=== PATIENT | female | born 1930 | race Caucasian/White ===

== ENCOUNTER 2017-06-18 09:33 | Observation (INO) | payer MEDICARE, OTHER ==
[2017-06-18 09:33] VITALS: BMI 25.4
[2017-06-18 10:35] LABS: BASO # 0.02 K/mm3 (0.0-2.0); BASO % 0.3 % (0.0-3.0); EOS # 0.1 (0.0-0.7); EOS % 0.9 % (1.5-5.0); GRAN # 5.26 (1.4-6.5); GRAN % 70.1 % (50.0-68.0); HEMOGLOBIN 12.3 g/dL (12.0-16.0); LYMPH # 1.7 (1.2-3.4); LYMPH % 22.4 % (22.0-35.0); MEAN CELL VOLUME 96.1 fl (80.0-105.0); MEAN CORPUSCULAR HEMOGLOBIN 31.9 pg (25.0-35.0); MEAN CORPUSCULAR HGB CONC 33.2 g/dl (31.0-37.0); MEAN PLATELET VOLUME 10.3 fl (7.0-11.0); MONO # 0.5 (0.1-0.6); MONO % 6.3 % (1.0-6.0); RBC 3.85 10^6/uL (3.5-6.1); RED CELL DISTRIBUTION WIDTH 12.9 % (11.5-14.5); WHITE BLOOD COUNT 7.5 10^3/ul (4.5-11.0)
[2017-06-18 10:57] LABS: URINE BILIRUBIN NEGATIVE (NEGATIVE); URINE BLOOD SMALL (NEGATIVE); URINE GLUCOSE (UA) NEGATIVE (NEGATIVE); URINE LEUKOCYTE ESTERASE NEGATIVE Leu/uL (NEGATIVE); URINE NITRATE NEGATIVE (NEGATIVE); URINE PROTEIN NEGATIVE mg/dL (<30 mg/dL); URINE UROBILINOGEN 0.2 E.U./dL (<1 E.U./dL)
[2017-06-18 10:58] LABS: URINE APPEARANCE SL CLOUDY (CLEAR); URINE COLOR YELLOW (YELLOW)
--- NOTE | 2017-06-18 11:17 | RAD ---
HISTORY: weakness COMPARISON: 08/08/2016. FINDINGS: LUNGS: The lungs are well inflated. There is mild pulmonary venous congestion. No focal consolidation PLEURA: No significant pleural effusion identified, no pneumothorax apparent. CARDIOVASCULAR: There is mild cardiomegaly. Atherosclerotic aortic arch calcifications are present. OSSEOUS STRUCTURES: No significant abnormalities. VISUALIZED UPPER ABDOMEN: Normal. OTHER FINDINGS: None. IMPRESSION: Mild cardiomegaly and pulmonary venous congestion.
[2017-06-18 11:19] LABS: ALB/GLOB RATIO 1.2 (1.1-1.8); ALBUMIN 3.8 g/dL (3.0-4.8); ALT/SGPT 30 U/L (7-56); AST/SGOT 22 U/L (14-36); BLOOD UREA NITROGEN 28 mg/dL (7-21); CALCIUM 9.4 mg/dL (8.4-10.5); GFR AFRICAN-AMERICAN > 60; GFR NON-AFRICAN AMERICAN > 60; LIPASE 49 U/L (23-300)
[2017-06-18 11:23] LABS: URINE EPITHELIAL CELLS 0 - 2 /hpf (0-5); URINE RBC 0 - 2 /hpf (0-2); URINE WBC NEGATIVE /hpf (0-6)
[2017-06-18 11:31] LABS: B-TYPE NATRIURETIC PEPTIDE 1360 pg/mL (0-450); TROPONIN I < 0.01 ng/mL
--- NOTE | 2017-06-18 11:46 | ED PDOC ---
Arrival/HPI - General Chief Complaint: Weakness/Neurological Deficit Time Seen by Provider: 06/18/17 10:04 Historian: Patient, Family (Son), Caregiver EM Caveat: Dementia - History of Present Illness Narrative History of Present Illness (Text): 06/18/17 11:43 An 87 year old female, whose past medical history includes dementia, presents to the emergency department complaining of fatigue and generalized weakness. As per the caregiver, the patient was unable to stand up and walk today. The caregiver states that yesterday the patient was walking around and could usually walk up to 20 blocks. Today, however, the patient was unable to get up to use the bathroom. The patient's son states that the patient complained of dysuria a few days ago. The patient currently denies fevers, chills, headache, dizziness, chest pain, shortness of breath, dyspnea on exertion, cough, abdominal pain, nausea, vomiting, diarrhea, back pain, neck pain, or any other complaint. Time/Duration: Other (Today) Symptom Onset: Sudden Symptom Course: Unchanged Activities at Onset: Light Context: Home Past Medical History - Provider Review Nursing Documentation Reviewed: Yes - Infectious Disease Hx of Infectious Diseases: None - Tetanus Immunization Tetanus Immunization: Unknown - Reproductive Menopause: Yes - Cardiac Hx Cardiac Disorders: Yes Hx Hypotension: Yes - Pulmonary Hx Respiratory Disorders: No - Neurological Hx Neurological Disorder: Yes Hx Alzheimer's Disease: Yes Hx Dementia: Yes - HEENT Hx HEENT Disorder: No - Renal Hx Renal Disorder: No - Endocrine/Metabolic Hx Endocrine Disorders: No - Hematological/Oncological Hx Blood Disorders: No - Integumentary Hx Dermatological Disorder: No - Musculoskeletal/Rheumatological Hx Musculoskeletal Disorders: Yes Hx Arthritis: Yes - Gastrointestinal Hx Gastrointestinal Disorders: No - Genitourinary/Gynecological Hx Genitourinary Disorders: No - Psychiatric Hx Psychophysiologic Disorder: No Hx Substance Use: No - Past Surgical History Past Surgical History: No Previous - Surgical History Other/Comment: bladder surgery - Anesthesia Hx Anesthesia: No - Suicidal Assessment Feels Threatened In Home Enviroment: No Family/Social History - Physician Review Nursing Documentation Reviewed: Yes Family/Social History: No Known Family HX Smoking Status: Former Smoker Hx Alcohol Use: No Hx Substance Use: No Hx Substance Use Treatment: No Allergies/Home Meds Allergies/Adverse Reactions: Allergies No Known Allergies Allergy (Verified 06/18/17 09:57) Home Medications: Home Meds Medication Instructions Recorded Confirmed No Known Home Med 06/18/17 06/18/17 Review of Systems - Physician Review All systems were reviewed & negative as marked: Yes - Review of Systems Systems not reviewed;Unavailable: Dementia Constitutional: Fatigue (Fatigue and generalized weakness). absent: Fevers, Night Sweats Respiratory: absent: SOB, Cough Cardiovascular: absent: Chest Pain, RIDLEY Gastrointestinal: absent: Abdominal Pain, Nausea, Vomiting Musculoskeletal: absent: Back Pain, Neck Pain Neurological: absent: Headache, Dizziness Physical Exam Vital Signs Temp Pulse Resp BP Pulse Ox 06/18/17 10:30 61 18 100 06/18/17 10:02 97.7 F 17 180/79 H 99 Temperature: Afebrile Blood Pressure: Hypertensive Pulse: Regular Respiratory Rate: Normal Appearance: Positive for: Well-Appearing, Non-Toxic Pain Distress: None Mental Status: No: Alert and Oriented X 3 (Alert.) - Systems Exam Head: Present: Atraumatic, Normocephalic Pupils: Present: PERRL Extroacular Muscles: Present: EOMI Mouth: Present: Moist Mucous Membranes Respiratory/Chest: Present: Clear to Auscultation Cardiovascular: Present: Regular Rate and Rhythm, Normal S1, S2. No: Murmurs Abdomen: No: Tenderness, Distention Medical Decision Making ED Course and Treatment: 06/18/17 11:48 Impression: An 87 year old female presents to the emergency department complaining of fatigue and generalized weakness. Plan: -- Reassess and disposition Prior Visits: Notes and results from previous visits were reviewed. Patient was last seen in the emergency department on Progress Notes: - Lab Interpretations Lab Results: 06/18/17 10:15 06/18/17 10:57 Lab Results 06/18/17 10:57: Sodium 138, Potassium 4.6, Chloride 102, Carbon Dioxide 27, Anion Gap 13, BUN 28 H, Creatinine 0.7, Est GFR ( Amer) > 60, Est GFR ( Non-Af Amer) > 60, Random Glucose 106, Calcium 9.4, Total Bilirubin 0.7, AST 22 , ALT 30, Alkaline Phosphatase 80, Lactate Dehydrogenase 475, Total Creatine Kinase 36, Troponin I < 0.01, NT-Pro-B Natriuret Pep 1360 H, Total Protein 7.1, Albumin 3.8, Globulin 3.2, Albumin/Globulin Ratio 1.2, Lipase 49 06/18/17 10:35: Urine Color Yellow, Urine Appearance Sl cloudy, Urine pH 7.0, Ur Specific [place] 1.015, Urine Protein Negative, Urine Glucose (UA) Negative, Urine Ketones Negative, Urine Blood Small H, Urine Nitrate Negative, Urine Bilirubin Negative, Urine Urobilinogen 0.2, Ur Leukocyte Esterase Negative, Urine RBC 0 - 2, Urine WBC Negative, Ur Epithelial Cells 0 - 2 06/18/17 10:15: WBC 7.5, RBC 3.85, Hgb 12.3, Hct 37.0, MCV 96.1, MCH 31.9, MCHC 33.2, RDW 12.9, Plt Count 187, MPV 10.3, Gran % 70.1 H, Lymph % (Auto) 22.4, B[place]soe % (Auto) 6.3 H, Eos % (Auto) 0.9 L, Baso % (Auto) 0.3, Gran # 5.26, Lymph # 1.7, Bledsoe # 0.5, Eos # 0.1, Baso # 0.02 - RAD Interpretation Radiology Orders: 06/18/17 10:04 CHEST PORTABLE [RAD] Stat Disposition/Present on Arrival - Present on Arrival History of DVT/PE: No History of Uncontrolled Diabetes: No Urinary Catheter: No History of Decub. Ulcer: No History Surgical Site Infection Following: None - Disposition
--- NOTE | 2017-06-18 11:54 | ED PDOC ---
Arrival/HPI - General Chief Complaint: Weakness/Neurological Deficit Time Seen by Provider: 06/18/17 10:04 Historian: Family, Caregiver (Son) EM Caveat: Dementia - History of Present Illness Narrative History of Present Illness (Text): 06/18/17 11:43 An 87 year old female, whose past medical history includes dementia, presents to the emergency department complaining of fatigue and generalized weakness. As per the caregiver, the patient was unable to stand up and walk today. The caregiver states that yesterday the patient was walking around and could usually walk up to 20 blocks. Today, however, the patient was unable to get up off the toilet today. The patient's son in-law states that the patient complained of dysuria and urinary frequency. The patient currently denies fevers , chills, headache, dizziness, chest pain, shortness of breath, dyspnea on exertion, cough, abdominal pain, nausea, vomiting, diarrhea, back pain, neck pain, or any other complaint. Time/Duration: Other (Today) Symptom Onset: Sudden Symptom Course: Unchanged Activities at Onset: Rest, Light Context: Home Past Medical History - Provider Review Nursing Documentation Reviewed: Yes - Travel History Have you recently traveled outside [place] w/in the past 3 mons?: No - Infectious Disease Hx of Infectious Diseases: None - Tetanus Immunization Tetanus Immunization: Unknown - Reproductive Menopause: Yes - Cardiac Hx Cardiac Disorders: Yes Hx Hypotension: Yes - Pulmonary Hx Respiratory Disorders: No - Neurological Hx Neurological Disorder: Yes Hx Alzheimer's Disease: Yes Hx Dementia: Yes - HEENT Hx HEENT Disorder: No - Renal Hx Renal Disorder: No - Endocrine/Metabolic Hx Endocrine Disorders: No - Hematological/Oncological Hx Blood Disorders: No - Integumentary Hx Dermatological Disorder: No - Musculoskeletal/Rheumatological Hx Musculoskeletal Disorders: Yes Hx Arthritis: Yes - Gastrointestinal Hx Gastrointestinal Disorders: No - Genitourinary/Gynecological Hx Genitourinary Disorders: No - Psychiatric Hx Psychophysiologic Disorder: No Hx Substance Use: No - Past Surgical History Past Surgical History: No Previous - Surgical History Other/Comment: bladder surgery - Anesthesia Hx Anesthesia: No - Suicidal Assessment Feels Threatened In Home Enviroment: No Family/Social History - Physician Review Nursing Documentation Reviewed: Yes Family/Social History: No Known Family HX Smoking Status: Former Smoker Hx Alcohol Use: No Hx Substance Use: No Hx Substance Use Treatment: No Allergies/Home Meds Allergies/Adverse Reactions: Allergies No Known Allergies Allergy (Verified 06/18/17 09:57) Home Medications: Home Meds Medication Instructions Recorded Confirmed No Known Home Med 06/18/17 06/18/17 Review of Systems - Physician Review All systems were reviewed & negative as marked: Yes - Review of Systems Systems not reviewed;Unavailable: Dementia Constitutional: Fatigue (Fatigue and generalized weakness). absent: Fevers, Night Sweats Respiratory: absent: SOB, Cough Cardiovascular: absent: Chest Pain, RIDLEY Gastrointestinal: absent: Abdominal Pain, Diarrhea, Nausea, Vomiting Genitourinary Female: Dysuria Musculoskeletal: absent: Back Pain, Neck Pain Neurological: absent: Headache, Dizziness Physical Exam Vital Signs Reviewed: Yes Vital Signs Temp Pulse Resp BP Pulse Ox 06/18/17 17:04 62 18 168/69 H 98 06/18/17 11:55 63 18 171/71 H 100 06/18/17 10:30 61 18 100 06/18/17 10:02 97.7 F 17 180/79 H 99 Temperature: Afebrile Blood Pressure: Hypertensive Pulse: Regular Respiratory Rate: Normal Appearance: Positive for: Well-Appearing, Non-Toxic Pain Distress: None Mental Status: Positive for: other (alert) - Systems Exam Head: Present: Atraumatic, Normocephalic Pupils: Present: PERRL Extroacular Muscles: Present: EOMI Mouth: Present: Moist Mucous Membranes Respiratory/Chest: Present: Clear to Auscultation, Good Air Exchange. No: Respiratory Distress, Accessory Muscle Use Cardiovascular: Present: Regular Rate and Rhythm, Normal S1, S2. No: Murmurs Abdomen: No: Tenderness, Distention Back: Present: Normal Inspection Upper Extremity: Present: Normal ROM Lower Extremity: Present: Normal Inspection. No: Edema Neurological: Present: GCS=15, Speech Normal Skin: Present: Warm, Dry, Normal Color. No: Rashes Psychiatric: Present: Alert Medical Decision Making ED Course and Treatment: 06/18/17 11:53 Impression: An 87 year old female presents to the emergency department complaining of fatigue and generalized weakness. Plan: -- EKG -- labs; BNP; 1320, bun; 28/ cr0.7 trop; 0.01 -- urine; + blood -- Reassess and disposition Prior Visits: Notes and results from previous visits were reviewed. Patient was last seen in the emergency department on 08/08/2016. the patient was seen in the emergency department for a complaint of LOC with trauma. The patient was hospitalized. Progress Notes: EKG: Ordered, reviewed, and independently interpreted the EKG. Rate : 63 BPM Rhythm : NSR Interpretation : No ST-elevations. Normal Intervals. CHEST X-RAY Dictator : Michaela Liu MD Report Date : 06/18/2017 11:15:46 IMPRESSION: Mild cardiomegaly and pulmonary venous congestion. vitals remain stable; pt eating in er; no complaints. case discussed with dr. mederos; due to patients hx of dementia; history is unreliable; pt with episode of weakness, elevated bnp; will admit observational status to tele for serial enzymes and scientific informatics leader and neurology consult. all aspects of this case were discussed the attending of record. impression; weakness, elevated bnp admit observational status to tele. - Lab Interpretations Lab Results: 06/18/17 10:15 06/18/17 10:57 Lab Results 06/18/17 10:57: Sodium 138, Potassium 4.6, Chloride 102, Carbon Dioxide 27, Anion Gap 13, BUN 28 H, Creatinine 0.7, Est GFR ( Amer) > 60, Est GFR ( Non-Af Amer) > 60, Random Glucose 106, Calcium 9.4, Total Bilirubin 0.7, AST 22 , ALT 30, Alkaline Phosphatase 80, Lactate Dehydrogenase 475, Total Creatine Kinase 36, Troponin I < 0.01, NT-Pro-B Natriuret Pep 1360 H, Total Protein 7.1, Albumin 3.8, Globulin 3.2, Albumin/Globulin Ratio 1.2, Lipase 49 06/18/17 10:35: Urine Color Yellow, Urine Appearance Sl cloudy, Urine pH 7.0, Ur Specific [place] 1.015, Urine Protein Negative, Urine Glucose (UA) Negative, Urine Ketones Negative, Urine Blood Small H, Urine Nitrate Negative, Urine Bilirubin Negative, Urine Urobilinogen 0.2, Ur Leukocyte Esterase Negative, Urine RBC 0 - 2, Urine WBC Negative, Ur Epithelial Cells 0 - 2 06/18/17 10:15: WBC 7.5, RBC 3.85, Hgb 12.3, Hct 37.0, MCV 96.1, MCH 31.9, MCHC 33.2, RDW 12.9, Plt Count 187, MPV 10.3, Gran % 70.1 H, Lymph % (Auto) 22.4, [place] % (Auto) 6.3 H, Eos % (Auto) 0.9 L, Baso % (Auto) 0.3, Gran # 5.26, Lymph # 1.7, [place] # 0.5, Eos # 0.1, Baso # 0.02 I have reviewed the lab results: Yes - RAD Interpretation Radiology Orders: 06/18/17 10:04 CHEST PORTABLE [RAD] Stat 06/18/17 12:30 HEAD W/O CONTRAST [CT] Stat - EKG Interpretation Interpreted by ED Physician: Yes Type: 12 lead EKG - Scribe Statement The provider has reviewed the documentation as recorded by the Scribe Annette Mcbride Provider Karenibe Attestation: All medical record entries made by the Scribe were at my direction and personally dictated by me. I have reviewed the chart and agree that the record accurately reflects my personal performance of the history, physical exam, medical decision making, and the department course for this patient. I have also personally directed, reviewed, and agree with the discharge instructions and disposition. Disposition/Present on Arrival - Present on Arrival Any Indicators Present on Arrival: No History of DVT/PE: No History of Uncontrolled Diabetes: No Urinary Catheter: No History of Decub. Ulcer: No History Surgical Site Infection Following: None - Disposition Have Diagnosis and Disposition been Completed?: Yes Diagnosis: Weakness, Elevated brain natriuretic peptide (BNP) level Disposition: HOSPITALIZED Disposition Time: 15:10 Patient Plan: Observation Patient Problems: Current Active Problems Problem Status Onset Elevated brain natriuretic peptide (BNP) level Acute Weakness Acute Condition: FAIR
--- NOTE | 2017-06-18 13:17 | CT ---
PROCEDURE: CT HEAD WITHOUT CONTRAST. HISTORY: weakness COMPARISON: None available. TECHNIQUE: Axial computed tomography images were obtained through the head/brain without intravenous contrast. Radiation dose: Total exam DLP = 800 mGy-cm. This CT exam was performed using one or more of the following dose reduction techniques: Automated exposure control, adjustment of the mA and/or kV according to patient size, and/or use of iterative reconstruction technique. FINDINGS: HEMORRHAGE: No intracranial hemorrhage. BRAIN: No mass effect or edema. No atrophy or chronic microvascular ischemic changes. VENTRICLES: Unremarkable. No hydrocephalus. CALVARIUM: Unremarkable. PARANASAL SINUSES: Unremarkable as visualized. No significant inflammatory changes. MASTOID AIR CELLS: Unremarkable as visualized. No inflammatory changes. OTHER FINDINGS: None. IMPRESSION: No acute findings
--- NOTE | 2017-06-18 17:48 | CARD ---
APPROVED REPORT EKG Measurement Heart [id number] <Conclusion> Normal sinus rhythm Septal infarct, age undetermined Abnormal ECG
[2017-06-19 03:27] VITALS: BP 134/64; RESP 20; TEMP 97.9; O2SAT 95
[2017-06-19 12:25] VITALS: PULSE 55
--- NOTE | 2017-06-19 13:57 | CON ---
DATE: 06/19/2017 INDICATIONS: Weakness. HISTORY OF PRESENT ILLNESS: This is an 87-year-old woman, known to me, who was brought to the Emergency Room by her son because of weakness. For the last day or so, she has been unable to ambulate, which is unusual. She has dementia and a chronic caregiver who noticed recent changes including the inability to walk. There was no chest pain, shortness of breath, orthopnea, PND, syncope, presyncope, lightheadedness, dizziness, vertigo, palpitations, edema, claudication, fever, chills, coughs, sputum production, hemoptysis, abdominal pain, nausea, vomiting, diarrhea, constipation, or melena. PAST MEDICAL HISTORY: Notable for dementia, hypertension, intermittent left bundle-branch block, degenerative joint disease, cerebrovascular disease, she has had several falls over the years, and she has had a negative EP evaluation. In 08/2016, she underwent an echocardiogram, which revealed normal LV function, severe pulmonary hypertension, severe tricuspid regurgitation, and right ventricular enlargement. There is no history of diabetes, stroke, TIA, gout, myocardial infraction, angina, or congestive heart failure. MEDICATIONS: She was on no medications at the time of admission. There were no medication allergies reported. FAMILY HISTORY: Not available. Her son has cardiac disease. SOCIAL HISTORY: She lives at home with a caregiver. She is a former smoker. She does not drink alcohol. REVIEW OF SYSTEMS: A 10-point review of systems is limited because of dementia. PHYSICAL EXAMINATION: GENERAL: She is a well-developed elderly woman lying in bed on telemetry in no acute distress. VITAL SIGNS: Notable for sinus rhythm, sinus bradycardia 54 to 63 beats per minute, she is afebrile. Blood pressure is 134/64, respirations are 18 to 20, and O2 saturation is 95% to 100% on room air. HEENT: Reveals no neck vein distention, thyromegaly, or carotid bruits. Mucous membranes moist. Conjunctivae are pink. NECK: Supple. LUNG: Lung maldonado clear. CARDIOVASCULAR: Examination of the heart revealed normal first and second heart sounds, without murmur, gallop, rub, or click. ABDOMEN: Soft. Bowel sounds are present. No mass, organomegaly, tenderness, rebound, or guarding. No CVA tenderness. No palpable abdominal aortic aneurysm. EXTREMITIES: Revealed no cyanosis, clubbing, or edema. NEUROLOGIC: She was awake and alert, but not oriented to place or time. PSYCHIATRIC: Abnormal, dementia. SKIN: Warm and dry. No rash or cellulitis. LABORATORY AND IMAGING DATA: A portable chest x-ray demonstrated cardiomegaly possible mild vascular redistribution. EKG demonstrates regular sinus rhythm, intraventricular conduction delay, possible anterior septal myocardial infarction. No significant change from a prior EKG, except there is not a complete left bundle-branch block at this time. A CT scan of the head reveals no acute findings. CBC is unremarkable. Electrolytes, BUN, creatinine, blood sugar, LFTs, calcium, CK, and troponin all unremarkable. BNP of 1360 and lipase of 49. Urinalysis noted. IMPRESSION: Lucero Morales is an 87-year-old woman with advanced dementia who presents with weakness, inability to ambulate, or get up from a chair, which is relatively new. She has a history of hypertension, intermittent left bundle branch block, severe pulmonary hypertension, and tricuspid regurgitation on an echocardiogram in 08/2016, and cerebrovascular disease. PLAN: At this time, she will undergo neurologic evaluation. We will check a postural vital signs. I will review her old records and echocardiogram. She has been cultured. We will check stool for occult blood. She can be out of bed to chair as tolerated. I will follow along with you. Overall conservative course of cardiac care is anticipated. Hussain Lozano MD ARAVIND
--- NOTE | 2017-06-20 00:04 | HP ---
HISTORY OF PRESENT ILLNESS: The patient is an 87-year-old female admitted through the Emergency Department on 06/18/2017 for weakness and episode of an involuntary tremors lasting 1-2 minutes. There was no generalized seizure, no loss of consciousness. The patient denies any chest pain or shortness of breath. No swelling of the legs. She had some weakness of the lower extremities, but is ambulating independently at the present time. In the Emergency Department she had an elevated BNP level and some vascular congestion on chest x-ray and was admitted to telemetry for further evaluation and management. She has been seen in consultation by Cardiology Dr. Lozano and no further cardiac workup is planned. She is medically stable for discharge at the present time. PAST MEDICAL HISTORY: Includes; Alzheimer's disease, hypertension, degenerative joint disease with osteoporosis. There is no history of diabetes, CVA, seizures or DC. MEDICATIONS: The patient is on no current medications. ALLERGIES: HAS NO KNOWN ALLERGIES. FAMILY HISTORY: Noncontributory. SOCIAL HISTORY: The patient lives at home with a caregiver and there is no history of tobacco or alcohol use. She requires assistance with IADLs and is independent with most ADLs. REVIEW OF SYSTEMS: Essentially negative other than above. PHYSICAL EXAMINATION: GENERAL: The patient is a well-developed female in no acute distress. VITAL SIGNS: Blood pressure 134/64, pulse 55, temperature 97.9 and respiratory rate 20. HEENT: Head is normocephalic and atraumatic. Pupils equal, round, reactive to light. Extraocular movements intact. NECK: Supple. No thyromegaly. No carotid bruit. No adenopathy. LUNGS: Show few bibasilar crackles. HEART: Regular rate and rhythm. Grade 2/6 systolic murmur. No JVD. ABDOMEN: Soft and nontender. Bowel sounds are normoactive. EXTREMITIES: Without cyanosis, clubbing or edema. NEUROLOGIC: The patient is awake and confused without focal sensory motor deficits. SKIN: Warm and dry. LABORATORY DATA: WBC 7.5, hemoglobin 12.3 and hematocrit 37.0. Sodium 138, potassium 4.6, chloride 102, CO2 of 27, BUN 28, creatinine 0.7 and glucose 106. BNP is elevated at 1360. Troponin is less than 0.01. IMPRESSION: 1. Tremor of undetermined etiology, no evidence of seizures or syncope. 2. Possible mild congestive heart failure. 3. Alzheimer's disease. 4. History of hypertension. 5. Degenerative joint disease/osteoporosis. PLAN: The patient is admitted to telemetry for further evaluation and treatment. We will obtain Cardiology consultation Dr. Lozano and Neurology consultation with Dr. Ross. MOLLY Carrera MD
== END 2017-06-19 14:02 | disposition home or self-care (01) ==
LOC: ED 09:33 → ERH 15:11 → 3RSO 19:12
PROVIDERS: ADMIT Internal Medicine; ATTEND Internal Medicine
DX: R25.1 Tremor, unspecified (principal); R53.1 Weakness; I10 Essential (primary) hypertension; G30.9 Alzheimer's disease, unspecified; F02.80 Dementia in other diseases classified elsewhere, unspecified severity, without behavioral disturbance, psychotic disturbance, mood disturbance, and anxiety; I44.7 Left bundle-branch block, unspecified; I67.9 Cerebrovascular disease, unspecified; I27.20 Pulmonary hypertension, unspecified; I07.1 Rheumatic tricuspid insufficiency; M19.90 Unspecified osteoarthritis, unspecified site; M81.0 Age-related osteoporosis without current pathological fracture; Z87.891 Personal history of nicotine dependence
CPT/HCPCS: 70450; 71045; 80053; 81001; 82550; 83615; 83690; 83880; 84484; 85025; 87040; 87086; 93005; 99285; G0378

== ENCOUNTER 2017-09-07 18:08 | Emergency (ER) | payer MEDICARE, OTHER ==
[2017-09-07 18:41] VITALS: BMI 24.1
--- NOTE | 2017-09-07 18:44 | ED PDOC ---
Arrival/HPI - General Chief Complaint: Trauma Time Seen by Provider: 09/07/17 18:21 Historian: Patient, Family, Caregiver - History of Present Illness Time/Duration: Other (1 day) Symptom Onset: Sudden Symptom Course: Worsening Quality: Aching Severity Level: Mild Associated Symptoms (Text): 09/07/17 18:42 Patient slipped and fell backwards going down the steps yesterday. She hit her head and injured her neck. The symptoms have worsened today and they brought the patient for evaluation. There is no extremity trauma. No low back injury. No loss of consciousness syncope dizziness lightheadedness and numbness tingling or paresthesias. There is generalized, but no focal, weakness. No chest pain palpitations or dyspnea. No abdominal pain nausea or vomiting. Past Medical History - Infectious Disease Hx of Infectious Diseases: None - Tetanus Immunization Tetanus Immunization: Unknown - Cardiac Hx Cardiac Disorders: Yes Hx Hypotension: Yes - Pulmonary Hx Respiratory Disorders: No - Neurological Hx Neurological Disorder: Yes Hx Alzheimer's Disease: Yes Hx Dementia: Yes - HEENT Hx HEENT Disorder: No - Renal Hx Renal Disorder: No - Endocrine/Metabolic Hx Endocrine Disorders: No - Hematological/Oncological Hx Blood Disorders: No - Integumentary Hx Dermatological Disorder: No - Musculoskeletal/Rheumatological Hx Musculoskeletal Disorders: Yes Hx Arthritis: Yes - Gastrointestinal Hx Gastrointestinal Disorders: No - Genitourinary/Gynecological Hx Genitourinary Disorders: No - Psychiatric Hx Psychophysiologic Disorder: No Hx Substance Use: No - Past Surgical History Past Surgical History: No Previous - Surgical History Other/Comment: bladder surgery - Anesthesia Hx Anesthesia: No - Suicidal Assessment Feels Threatened In Home Enviroment: No Family/Social History - Physician Review Nursing Documentation Reviewed: Yes Family/Social History: Unknown Family HX Smoking Status: Former Smoker Hx Alcohol Use: No Hx Substance Use: No Hx Substance Use Treatment: No Allergies/Home Meds Allergies/Adverse Reactions: Allergies No Known Allergies Allergy (Verified 06/18/17 09:57) Review of Systems - Physician Review All systems were reviewed & negative as marked: Yes - Review of Systems Constitutional: Fatigue. absent: Fevers Respiratory: absent: SOB Cardiovascular: absent: Chest Pain Gastrointestinal: absent: Abdominal Pain, Vomiting Musculoskeletal: Neck Pain. absent: Back Pain Neurological: Headache. absent: Dizziness, Focal Weakness, Gait Changes Physical Exam Vital Signs Pulse Resp BP Pulse Ox 09/07/17 20:55 73 24 130/71 100 09/07/17 18:56 71 19 156/115 H 97 Temperature: Afebrile Blood Pressure: Normal Pulse: Regular Respiratory Rate: Normal Appearance: Positive for: Well-Appearing, Non-Toxic, Comfortable, Uncomfortable , Other (Frail pale cachectic and chronically ill-appearing) Pain Distress: Mild Mental Status: Positive for: Alert and Oriented X 3 - Systems Exam Head: Present: Atraumatic, Normocephalic Pupils: Present: PERRL Extroacular Muscles: Present: EOMI Conjunctiva: Present: Normal Mouth: Present: Moist Mucous Membranes Pharnyx: No: ERYTHEMA, EXUDATE, TONSILS ENLARGED Neck: Present: MIDLINE TENDERNESS, Paraspinal Tenderness. No: Normal Range of Motion Respiratory/Chest: Present: Clear to Auscultation, Good Air Exchange. No: Respiratory Distress, Accessory Muscle Use, Tender to Palpation Cardiovascular: Present: Regular Rate and Rhythm, Normal S1, S2. No: Murmurs Abdomen: No: Tenderness, Distention, Peritoneal Signs, Rebound, Guarding Back: Present: Normal Inspection. No: CVA Tenderness, Midline Tenderness, Paraspinal Tenderness Upper Extremity: Present: Normal Inspection. No: Cyanosis, Edema Lower Extremity: Present: Normal Inspection. No: Edema Neurological: Present: GCS=15, CN II-XII Intact, Speech Normal, Motor Func Grossly Intact, Normal Cerebellar Funct Skin: Present: Warm, Dry, Normal Color. No: Rashes Psychiatric: Present: Alert, Oriented x 3, Normal Insight, Normal Concentration Medical Decision Making ED Course and Treatment: 09/07/17 20:09 EXAM: CT Head Without Intravenous Contrast Dictated and Authenticated by: Yovana Lopez MD IMPRESSION: No acute findings. 09/07/17 20:32 EXAM: CT Cervical Spine Without Intravenous Contrast FINDINGS: Vertebrae: ? Slight central wedging of the T2 vertebral body of the superior endplate with indeterminant age. No gross evidence of acute displaced fracture within the cervical spine. Discs/spinal canal/neural foramina: Very limited evaluation due to significant motion artifact. Significant degenerative changes of the spine at C6-C7 level. However limited evaluation due to motion artifact. No spinal canal stenosis. IMPRESSION: ? Slight central wedging of the T2 vertebral body of the superior endplate with indeterminant age. Thank you for allowing us to participate in the care of your patient. 09/07/17 20:51 Discussed in detail with the patient and daughter. Probable old T12 compression. We'll discharge home with patient's aide. Follow-up with PMD. Follow-up in the ER as needed. Prescription for Ultram. She's been taking Tylenol with little relief. - RAD Interpretation Radiology Orders: 09/07/17 18:40 CERVICAL SPINE W/O CONTRAST [CT] Stat HEAD W/O CONTRAST [CT] Stat Disposition/Present on Arrival - Present on Arrival Any Indicators Present on Arrival: No History of DVT/PE: No History of Uncontrolled Diabetes: No Urinary Catheter: No History of Decub. Ulcer: No History Surgical Site Infection Following: None - Disposition Have Diagnosis and Disposition been Completed?: Yes Diagnosis: Head contusion, Cervical strain Disposition: HOME/ ROUTINE Disposition Time: 20:52 Patient Plan: Discharge Patient Problems: Current Active Problems Problem Status Onset Cervical strain Acute Head contusion Acute Condition: GOOD Discharge Instructions (ExitCare): Muscle Strain, Contusion (DC) Additional Instructions: Rest and moist heat. Follow-up with PMD. Follow up in ER as needed. Ultram as needed. Prescriptions: Tramadol HCl [Ultram] 50 mg PO Q6 PRN #15 tab PRN Reason: Pain Referrals: Brayden Durna JD, MD [Primary Care Provider] - Follow up with primary Forms: [employer] (Kinyarwanda)
[2017-09-07 20:56] VITALS: BP 130/71; PULSE 73; RESP 24; O2SAT 100
--- NOTE | 2017-09-08 08:17 | CT ---
PROCEDURE: CT HEAD WITHOUT CONTRAST. HISTORY: trauma COMPARISON: 06/18/2017 TECHNIQUE: Axial computed tomography images were obtained through the head/brain without intravenous contrast. Radiation dose: Total exam DLP = 1356 mGy-cm. This CT exam was performed using one or more of the following dose reduction techniques: Automated exposure control, adjustment of the mA and/or kV according to patient size, and/or use of iterative reconstruction technique. FINDINGS: HEMORRHAGE: No intracranial hemorrhage. BRAIN: No mass effect or edema. Chronic microvascular changes are seen in the periventricular white matter. Mild atrophy VENTRICLES: Unremarkable. No hydrocephalus. CALVARIUM: Unremarkable. PARANASAL SINUSES: Unremarkable as visualized. No significant inflammatory changes. MASTOID AIR CELLS: Unremarkable as visualized. No inflammatory changes. OTHER FINDINGS: The report concurs with the preliminary [facility] report IMPRESSION: No acute finding
--- NOTE | 2017-09-08 08:22 | CT ---
PROCEDURE: CT Cervical Spine without contrast HISTORY: Trauma COMPARISON: 12/17/2015 TECHNIQUE: Axial computed tomography images were obtained of the cervical spine without the use of intravenous contrast. Coronal and sagittal reformatted images were created and reviewed. Radiation dose: Total exam DLP = 638 mGy-cm. This CT exam was performed using one or more of the following dose reduction techniques: Automated exposure control, adjustment of the mA and/or kV according to patient size, and/or use of iterative reconstruction technique. FINDINGS: VERTEBRAE: No fracture. Normal alignment. No destructive bony lesion. Chronic wedge deformity of T2 and T3 DISCS/SPINAL CANAL/NEURAL FORAMINA: There is severe disc degeneration at C6-7. There is no stenosis PARASPINAL SOFT TISSUES: Unremarkable. OTHER FINDINGS: The report concurs with the preliminary [facility] report IMPRESSION: No acute findings
== END 2017-09-07 21:10 | disposition home or self-care (01) ==
LOC: ED 18:08
DX: S16.1XXA Strain of muscle, fascia and tendon at neck level, initial encounter (principal); S00.93XA Contusion of unspecified part of head, initial encounter; W01.0XXA Fall on same level from slipping, tripping and stumbling without subsequent striking against object, initial encounter; Z87.891 Personal history of nicotine dependence; F02.80 Dementia in other diseases classified elsewhere, unspecified severity, without behavioral disturbance, psychotic disturbance, mood disturbance, and anxiety; G30.9 Alzheimer's disease, unspecified

== ENCOUNTER 2017-11-11 13:50 | Observation (INO) | payer MEDICARE, OTHER ==
[2017-11-11 14:34] VITALS: RESP 18; BMI 23.0
[2017-11-11] MEDS ORDERED: Oxycodone/Acetaminophen 5/325 mg Tab PO STA (14:37)
--- NOTE | 2017-11-11 14:43 | ED PDOC ---
Arrival/HPI - General Chief Complaint: Trauma Time Seen by Provider: 11/11/17 14:31 Historian: Patient, Caregiver - History of Present Illness Narrative History of Present Illness (Text): 11/11/17 14:35 Patient is a 87 year old female who presents to Emergency department for evaluation s/p mechanical fall. 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 Case Monitor states that the patient was experiencing back pain while trying to get off the couch and subsequently slid off it. Patient denies fevers, chills, headache, dizziness, chest pain, shortness of breath, dyspnea on exertion, cough , abdominal pain, nausea, vomiting, diarrhea, or any other complaint. PMD: Time/Duration: Prior to Arrival Symptom Onset: Sudden Symptom Course: Unchanged Activities at Onset: Rest Context: Standing Past Medical History - Provider Review Nursing Documentation Reviewed: Yes - Infectious Disease Hx of Infectious Diseases: None - Tetanus Immunization Tetanus Immunization: Unknown - Reproductive Menopause: Yes - Cardiac Hx Cardiac Disorders: Yes Hx Hypotension: Yes - Pulmonary Hx Respiratory Disorders: No - Neurological Hx Neurological Disorder: Yes Hx Alzheimer's Disease: Yes Hx Dementia: Yes - HEENT Hx HEENT Disorder: No - Renal Hx Renal Disorder: No - Endocrine/Metabolic Hx Endocrine Disorders: No - Hematological/Oncological Hx Blood Disorders: No - Integumentary Hx Dermatological Disorder: No - Musculoskeletal/Rheumatological Hx Musculoskeletal Disorders: Yes Hx Arthritis: Yes - Gastrointestinal Hx Gastrointestinal Disorders: No - Genitourinary/Gynecological Hx Genitourinary Disorders: No - Psychiatric Hx Psychophysiologic Disorder: No Hx Substance Use: No - Past Surgical History Past Surgical History: No Previous - Surgical History Other/Comment: bladder surgery - Anesthesia Hx Anesthesia: No - Suicidal Assessment Feels Threatened In Home Enviroment: No Family/Social History - Physician Review Nursing Documentation Reviewed: Yes Family/Social History: No Known Family HX Smoking Status: Former Smoker Hx Alcohol Use: No Hx Substance Use: No Hx Substance Use Treatment: No Allergies/Home Meds Allergies/Adverse Reactions: Allergies No Known Allergies Allergy (Verified 06/18/17 09:57) Home Medications: Home Meds Medication Instructions Recorded Confirmed No Known Home Med 11/11/17 11/11/17 Review of Systems - Physician Review All systems were reviewed & negative as marked: Yes - Review of Systems Constitutional: absent: Fevers, Night Sweats Respiratory: absent: SOB, Cough Cardiovascular: absent: Chest Pain, RIDLEY Gastrointestinal: absent: Diarrhea, Nausea Musculoskeletal: Back Pain Neurological: absent: Headache, Dizziness Physical Exam Vital Signs Reviewed: Yes Vital Signs Temp Pulse Resp BP Pulse Ox 11/11/17 20:32 70 18 132/78 98 11/11/17 17:06 65 18 165/71 H 95 11/11/17 15:49 71 18 168/79 H 95 11/11/17 14:09 98.0 F 79 18 172/88 H 95 Temperature: Afebrile Blood Pressure: Hypertensive Pulse: Regular Respiratory Rate: Normal Appearance: Positive for: Well-Appearing Mental Status: Positive for: Alert and Oriented X 3 - Systems Exam Head: Present: Atraumatic, Normocephalic Pupils: Present: PERRL Extroacular Muscles: Present: EOMI Conjunctiva: Present: Normal Mouth: Present: Moist Mucous Membranes Neck: Present: Normal Range of Motion Respiratory/Chest: Present: Clear to Auscultation, Good Air Exchange. No: Respiratory Distress, Accessory Muscle Use Cardiovascular: Present: Regular Rate and Rhythm, Normal S1, S2. No: Murmurs Abdomen: No: Tenderness, Distention, Peritoneal Signs Back: Present: Normal Inspection, Other (Tenderness on left side sciatic notch) . No: CVA Tenderness, Midline Tenderness, Paraspinal Tenderness Upper Extremity: Present: Normal Inspection. No: Cyanosis, Edema Lower Extremity: Present: Normal Inspection. No: Edema Neurological: Present: GCS=15, CN II-XII Intact, Speech Normal Skin: Present: Warm, Dry, Normal Color. No: Rashes Psychiatric: Present: Alert, Oriented x 3, Normal Insight, Normal Concentration Medical Decision Making ED Course and Treatment: 11/11/17 14:37 Impression: Patient is a 87 year old female who is complaining of back pain and experiencing a mechanical fall. Differential Diagnosis included but are not limited to: Sciatica vs. lumbar radiculopathy vs. osteoarthritis Plan: --Lumbar spine CT without contrast --Robaxin --Percocet --Reassess and disposition Prior Visits: Notes and results from previous visits were reviewed. Progress Notes: 11/11/17 15:[address] Brayden Duran, who states to admit patient for intractable back pain and frequent falls. 11/11/2017 15:[address] IMPRESSION: There is severe facet arthropathy and disc degeneration at L5-S1. There is severe central stenosis and bilateral foraminal stenosis. Dictator: Chaz Jiang MD - RAD Interpretation Radiology Orders: 11/11/17 14:47 LUMBAR SPINE W/O CONTRAST [CT] Stat - Medication Orders Current Medication Orders: Discontinued Medications Acetaminophen (Tylenol 325mg Tab) 650 mg PO Q6H PRN PRN Reason: Fever >100.4 F Calcitonin [place] (Miacalcin) 200 intlu NS DAILY [facility] Last Admin: 11/12/17 10:26 Dose: 1 dose Methocarbamol (Robaxin) 500 mg PO QID NE Last Admin: 11/12/17 14:30 Dose: 500 mg Oxycodone/Acetaminophen (Percocet 5/325 Mg Tab) 1 tab PO STAT STA Stop: 11/11/17 14:38 Last Admin: 11/11/17 14:56 Dose: 1 tab MAR Pain Assessment Document 11/11/17 14:56 LA (Rec: 11/11/17 14:56 SARAH [id number]) Pain Reassessment Is this a pain reassessment? No Sleep Is patient sleeping during reassessment? No Presence of Pain Presence of Pain Yes Pain Scale Used Pain Scale Used Numeric Location Pain Location Body Site Back Description Intensity of Pain at present 6 Pain Behavior Guarding Pneumococcal Polyvalent Vaccine (Pneumovax 23 Vaccine) 0.5 ml IM .ONCE ONE Stop: 11/11/17 23:05 - Scribe Statement The provider has reviewed the documentation as recorded by the Karenibtrenton Awad Provider Scribe Attestation: All medical record entries made by the Scribe were at my direction and personally dictated by me. I have reviewed the chart and agree that the record accurately reflects my personal performance of the history, physical exam, medical decision making, and the department course for this patient. I have also personally directed, reviewed, and agree with the discharge instructions and disposition. Disposition/Present on Arrival - Present on Arrival Any Indicators Present on Arrival: No History of DVT/PE: No History of Uncontrolled Diabetes: No Urinary Catheter: No History of Decub. Ulcer: No History Surgical Site Infection Following: None - Disposition Have Diagnosis and Disposition been Completed?: Yes Diagnosis: Falls frequently, Generalized weakness, Intractable back pain, Sciatica Disposition: HOSPITALIZED Disposition Time: 16:20 Condition: FAIR
--- NOTE | 2017-11-11 15:56 | CT ---
PROCEDURE: CT Lumbar Spine without contrast HISTORY: lEFT sIDED rADICULOPATHY COMPARISON: None. TECHNIQUE: Axial computed tomography images were obtained of the lumbar spine without the use of intravenous contrast. Coronal and sagittal reformatted images were created and reviewed. Radiation dose: Total exam DLP = 382 mGy-cm. This CT exam was performed using one or more of the following dose reduction techniques: Automated exposure control, adjustment of the mA and/or kV according to patient size, and/or use of iterative reconstruction technique. FINDINGS: VERTEBRAE: Unremarkable. No fracture. Normal alignment. DISCS/SPINAL CANAL/NEURAL FORAMINA: L1-2: Unremarkable. L2-3: Unremarkable. L3-4: Unremarkable. L4-5: Unremarkable. L5-S1: There is severe facet arthropathy and disc degeneration at L5-S1. There is severe central stenosis and bilateral foraminal stenosis. PARASPINAL SOFT TISSUES: Unremarkable. OTHER FINDINGS: There is a transitional partially lumbarized S1 segment IMPRESSION: There is severe facet arthropathy and disc degeneration at L5-S1. There is severe central stenosis and bilateral foraminal stenosis.
[2017-11-11] MEDS ORDERED: Calcitonin 200 Int Units/Inh Nasal Spray (3.7 ml) NS SCH (18:00)
[2017-11-11] MEDS: Methocarbamol 500 MG Tab PO SCH ×2 (19:30→23:25)
[2017-11-11 21:27] VITALS: O2SAT 96
[2017-11-11] MEDS ORDERED: Pneumococcal 23-Valent Vaccine IM ONE (23:04)
--- NOTE | 2017-11-12 03:34 | HP ---
HISTORY OF PRESENT ILLNESS: The patient is an 87-year-old female who is admitted through the emergency department on 11/11/2017 status post a fall. There is no loss of consciousness. No witnessed seizures. Patient has a history of degenerative joint disease, osteoporosis, and gait dysfunction with recurrent falls. There is no chest pain, shortness of breath, swelling of the legs. No dizziness or headache. No nausea, no vomiting, no diaphoresis. PAST MEDICAL HISTORY: Includes Alzheimer's disease, hypertension, degenerative joint disease with osteoporosis. There is no history of diabetes, stroke, seizures, or coronary disease. PAST SURGICAL HISTORY: Patient has no significant past surgical history. MEDICATIONS: Is on no current medications. ALLERGIES: SHE HAS NO KNOWN ALLERGIES. FAMILY HISTORY: Noncontributory. SOCIAL HISTORY: The patient lives at home with 24-hour homemaker. There is no history of tobacco or alcohol use. She requires assistance with IADLs and is independent with most ADLs. REVIEW OF SYSTEMS: Essentially negative other than above. PHYSICAL EXAMINATION: GENERAL: The patient is a well-developed, mildly cachectic female, in no acute distress. VITAL SIGNS: Blood pressure 165/71, pulse 65, temperature 98, respiratory rate 18. HEENT: Head is normocephalic, atraumatic. Pupils equal, round, reactive to light. Extraocular movements intact. NECK: Supple with no thyromegaly. No carotid bruit. No adenopathy. LUNGS: Clear. HEART: Regular rate and rhythm with a grade 2/6 systolic murmur. No JVD, no HJR. ABDOMEN: Soft, nontender. Bowel sounds are normoactive. EXTREMITIES: Without cyanosis, clubbing, or edema. There is severe kyphoscoliosis of the spine. NEUROLOGICALLY: The patient is awake and confused without focal sensory or motor deficits. SKIN: Warm and dry. LABORATORY DATA: Labs are pending. CT scan of the lumbosacral sacral spine shows degenerative disk disease with spinal stenosis at the L5-S1 level. IMPRESSION: 1. Intractable low back pain, rule out compression fracture of the lumbar spine. 2. Degenerative joint disease/osteoporosis. 3. Recurrent falls/gait dysfunction. 4. Alzheimer's disease. 5. Hypertension. PLAN: The patient will be admitted to the medical-surgical floor. We will obtain orthopedic consultation with Dr. Gannon. We will start Miacalcin nasal spray due to its effects to relieve pain of vertebral compression fractures. We will give Tylenol p.r.n. pain. Physical therapy evaluation and treatment. Social work for discharge planning. MOLLY Carrera MD
[2017-11-12 10:18] LABS: HEMOGLOBIN 11.4 g/dL (12.0-16.0); MEAN CORPUSCULAR HEMOGLOBIN 30.6 pg (25.0-35.0); MEAN CORPUSCULAR HGB CONC 33.2 g/dl (31.0-37.0); MEAN PLATELET VOLUME 9.7 fl (7.0-11.0); RBC 3.73 10^6/uL (3.5-6.1); RED CELL DISTRIBUTION WIDTH 13.1 % (11.5-14.5); WHITE BLOOD COUNT 6.8 10^3/ul (4.5-11.0)
[2017-11-12] MEDS: Methocarbamol 500 MG Tab PO SCH ×2 (10:26→14:30)
[2017-11-12 10:54] LABS: ALB/GLOB RATIO 1.2 (1.1-1.8); ALBUMIN 3.5 g/dL (3.0-4.8); ALT/SGPT 27 U/L (7-56); AST/SGOT 28 U/L (14-36); BLOOD UREA NITROGEN 20 mg/dL (7-21); GFR AFRICAN-AMERICAN > 60; GFR NON-AFRICAN AMERICAN > 60
--- NOTE | 2017-11-12 13:01 | CON ---
DATE: 11/12/2017 INPATIENT CONSULTATION REASON FOR CONSULT: Intractable back pain. HISTORY OF PRESENT ILLNESS: This is an 87-year-old female who was admitted yesterday with complaints of back pain. History is somewhat limited because the patient has some baseline confusion and there was no history of trauma. Today, she says that she does not have any significant pain at this time. She denies any numbness or tingling going down her legs. She denies any weakness. She denies any change in her bowel or bladder habits. PHYSICAL EXAMINATION: GENERAL: This is an elderly female. She answers appropriately to most questions, but has some inappropriate answers at times. NEUROLOGIC: Grossly, she is neurovascularly intact. She is able to perform bilateral straight leg raises. She is moving all her toes. Her thighs and calves are soft and nontender. She has no symmetric pain with passive internal and external rotation of her hips, no significant areas of point tenderness to palpation along the lumbosacral spine. She had a CAT scan of the lumbar spine done on admission. CAT scan showed no acute fractures or dislocations. She does have some severe L5-S1 arthropathy with disk degeneration and stenosis. IMPRESSION: Lumbar spondylosis and stenosis. PLAN: At this pint, I recommended physical therapy, pain medications as needed, and possible evaluation by Pain Management for lumbar epidural if she has significant pain. She can follow up as an outpatient. Mir Gannon MD
[2017-11-12 15:50] VITALS: BP 98/61; PULSE 61; TEMP 99.4
--- NOTE | 2017-11-13 02:31 | DS ---
HOSPITAL COURSE: The patient is an 87-year-old female, admitted through the Emergency Department on 11/11/2017, after a fall with the complaint of intractable back pain and an inability to ambulate. The patient was seen by Physical Therapy and ambulates with minimal assistance at the present time. She complains of minimal low back pain at present. She was seen in consultation by Orthopedic Surgery, Dr. Mir Gannon, who recommends physical therapy and a Pain Management consult. The patient is medically stable for discharge at the present time. PHYSICAL EXAMINATION: VITAL SIGNS: Blood pressure 98/61, temperature 99.4, pulse 61, respiratory rate 18. LUNGS: Clear. HEART: Regular rate and rhythm. ABDOMEN: Soft, nontender. Bowel sounds are normoactive. EXTREMITIES: Without cyanosis, clubbing or edema. NEUROLOGIC: The patient is awake and is mildly confused without focal sensory or motor deficits. SKIN: Warm and dry. IMPRESSION: 1. Degenerative joint disease/osteoporosis/recurrent falls. 2. Intractable low back pain, improved. 3. Hypertension. 4. Alzheimer's disease. PLAN: The patient will be discharged to home in a stable condition on the following medications: Fortical nasal spray 1 spray daily, alternate nostrils; Tylenol p.r.n. She will follow up as an outpatient in my office in 1-2 weeks. She will follow up with Pain Management, Dr. Garay, as well. Activities ad libitum. The patient will follow a heart-healthy diet. MOLLY Carrera MD
== END 2017-11-12 17:21 | disposition home or self-care (01) ==
LOC: ED 13:50 → ERH 15:47 → INTOOBSV 15:47 → ERH 20:08 → 5RNO 20:42
PROVIDERS: ADMIT Internal Medicine; ATTEND Internal Medicine
DX: M51.36 Other intervertebral disc degeneration, lumbar region (principal); M47.816 Spondylosis without myelopathy or radiculopathy, lumbar region; M48.061 Spinal stenosis, lumbar region without neurogenic claudication; M54.40 Lumbago with sciatica, unspecified side; I10 Essential (primary) hypertension; G30.9 Alzheimer's disease, unspecified; F02.80 Dementia in other diseases classified elsewhere, unspecified severity, without behavioral disturbance, psychotic disturbance, mood disturbance, and anxiety; M81.0 Age-related osteoporosis without current pathological fracture; R29.6 Repeated falls; R26.9 Unspecified abnormalities of gait and mobility
CPT/HCPCS: 36415; 72131; 80053; 85027; 97116; 97162; 99285; G0378; G8978; G8979